=== PATIENT | male | born 1990 ===

== ENCOUNTER 2025-08-11 06:00 | Day surgery (SDC) | payer OTHER ==
[2025-08-04 09:37] VITALS: BP 129/86
[2025-08-04 10:14] LABS: BASO % 0.3 % (0.1-1.2); EOS # 0.03 (0.04-0.54); EOS % 0.4 % (0.7-7.0); LYMPH # 1.68 (1.18-3.74); LYMPH % 23.5 % (19.3-53.1); MEAN PLATELET VOLUME 10.00 fl (9.4-12.4); MONO # 0.77 (0.24-0.82); MONO % 10.8 % (4.7-12.5); NEUT # 4.64 (1.56-6.13); NEUT % 64.7 % (34.0-71.1); RED CELL DISTRIBUTION WIDTH 13.1 % (11.6-14.4)
[2025-08-04 10:58] LABS: INR 1.0
[2025-08-04 11:20] LABS: ALT/SGPT 23.0 U/L (12-78); AST/SGOT 10.0 U/L (15-37); BILIRUBIN TOTAL 0.32 mg/dL (0.3-1.2); BUN CREA RATIO 14.0 (7.0-25.0); CREATININE SERUM 0.96 mg/dL (0.70-1.30); GFR 88.63; GLOBULINA 3.5 G/DL (2.4-3.5); GLUCOSE FASTING 87.0 mg/dL (65-100); OSMOLALITY SERUM 284.0 MOSM/KG (275-295)
[~2025-08-11] VITALS: Ht 170.2 cm; Wt 90.7 kg
[~2025-08-11 06:00] MED LIST: ZYRTEC10 M3 PO
[2025-08-11] MEDS ORDERED: METRONIDAZOLE/SODIUM CHLORIDE 500 MG/100 ML PIGGYBACK IV ONE (07:00)
[2025-08-11] MEDS ORDERED: LIDOCAINE HCL 1%/EPINEPHRINE 20ML VIAL IJ ONE (07:00)
[2025-08-11] MEDS ORDERED: CEFTRIAXONE SODIUM 2,000 MG VIAL IV ONE (07:00)
[2025-08-11] MEDS ORDERED: POVIDONE-IODINE 118 ML BOTT TOP ONE (07:00)
[2025-08-11] MEDS ORDERED: HEMOSTATIC MATRIX 1 KIT KIT TOP ONE (07:00)
[2025-08-11] MEDS ORDERED: DIBUCAINE 15 GM OINT..GM. TUBE RECTAL ONE (07:00)
[2025-08-11] MEDS ORDERED: BUPIVACAINE HCL 30 ML VIAL IJ ONE (07:00)
[2025-08-11] MEDS ORDERED: RECTICARE30 GM TOP (08:01)
[2025-08-11] MEDS ORDERED: PERCOCET 5-3251 EACH PO (08:01)
== END 2025-08-11 14:25 | disposition home or self-care (01) ==
LOC: CIR.AMB 06:00
PROVIDERS: ATTEND Surgery
DX: K60.322 Anal fistula, complex, persistent (principal); K64.2 Third degree hemorrhoids